=== PATIENT | female | born 1950 | race Caucasian/White ===

== ENCOUNTER → 2016-05-07 | Outpatient (CLI) | payer BC, OTHER | END | disposition home or self-care (01) | LOC: GMAB 14:10 | PROVIDERS: ATTEND Family Medicine | DX: C21.0 Malignant neoplasm of anus, unspecified (principal) ==

== ENCOUNTER 2016-07-01 23:01 | Emergency (ER) | payer OTHER, MEDICARE ==
[2016-07-01] MEDS ORDERED: ASPIRIN (CHEWABLE) 81 MG TAB PO ONE (23:06)
--- NOTE | 2016-07-01 23:09 | ED.PDOC ---
History of Present Illness - General Chief Complaint: Cardiovascular Problem Stated Complaint: chest pain Time Seen by Provider: 07/01/16 23:04 Source: patient Exam Limitations: no limitations - History of Present Illness Initial Comments: Patient presents with chest pain for three hours. It is midsternal, non- radiating, constant, pressure-like, one previous episode two weeks ago that resulted in PTCA placement x two, no associate sx. Denies dyspnea. 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 She called her oncologist michelet after the pain started and it was suggested to come to the ER for cardiac enzymes. Her oncologist instructed her to turn off her 5-FU pump before coming. No other complaints. Timing/Duration: 1-3 hours Severity: moderate Location: substernal Activities at Onset: none Prior Chest Pain/Cardiac Workup: cardiac cath Improving Factors: nothing Worsening Factors: nothing Nitro Today/Relief: no nitro taken today Aspirin Treatment Today: 81 mg x 1 Associated Symptoms: denies symptoms Allergies/Adverse Reactions: Allergies NO KNOWN ALLERGY Allergy (Verified 07/02/16 02:37) Review of Systems - Review of Systems Constitutional: States: no symptoms reported EENTM: States: no symptoms reported Respiratory: States: no symptoms reported Cardiology: States: see HPI Gastrointestinal/Abdominal: States: no symptoms reported Genitourinary: States: no symptoms reported Musculoskeletal: States: no symptoms reported Skin: States: no symptoms reported Neurological: States: no symptoms reported Endocrine: States: no symptoms reported Hematologic/Lymphatic: States: no symptoms reported Family Medical History - Family History Father Living Status: Hx Cardiac Disease: Yes Physical Exam - Physical Exam General Appearance: Alert Respiratory: lungs clear Cardiovascular/Chest: normal peripheral pulses, regular rate, rhythm Gastrointestinal/Abdominal: normal bowel sounds, non tender, soft Extremity: normal inspection, no pedal edema Skin Exam: normal color Lymphatic: no adenopathy Progress - Progress Progress: 07/02/16 03:28 EKG read by me showed NSR with no ST changes nor T wave inversions. No LBBB. Troponins x 2 negative. Patient discharged with orders to follow up with her oncologist in the morning. Departure - Departure Clinical Impression: Chest pain Disposition: Discharge to Home or Self Care Condition: Good Diet: resume usual diet Activity: increase activity as tolerated Additional Instructions: Follow up with your oncologist in the morning.
--- NOTE | 2016-07-01 23:51 | RAD ---
EXAM DESCRIPTION: Chest,1 View CLINICAL HISTORY: 65 years Female chest pain COMPARISON: None. FINDINGS: Left chest port tip overlies the SVC. The cardiomediastinal silhouette appears unremarkable. Atherosclerotic calcifications in the aortic arch. No consolidating infiltrates or pleural effusions. No pneumothorax. IMPRESSION: No acute abnormality is identified. Electronically signed by: Dante Beal MD 07/01/2016 11:50 PM CDT
[2016-07-02 03:40] VITALS: BP 117/58; TEMP 97.8; O2SAT 96
== END 2016-07-02 03:39 | disposition home or self-care (01) ==
LOC: ER 23:01
DX: R07.9 Chest pain, unspecified (principal); C21.0 Malignant neoplasm of anus, unspecified; Z79.899 Other long term (current) drug therapy; Z82.49 Family history of ischemic heart disease and other diseases of the circulatory system

== ENCOUNTER → 2016-08-13 | Outpatient (CLI) | payer OTHER, MEDICARE ==
--- NOTE | 2016-08-14 13:07 | US ---
EXAM DESCRIPTION: Carotid Duplex CLINICAL HISTORY: BRUIT COMPARISON: None Available. TECHNIQUE: Carotid Doppler ultrasound FINDINGS: Calcific atherosclerotic changes are observed in both carotid arteries. No hemodynamically significant stenosis is observed throughout the left carotid system. The right internal and common carotid arteries are unremarkable. There is some acceleration flow in the right external carotid artery. Antegrade flow seen in both vertebral arteries. IMPRESSION: No hemodynamically significant stenosis is detected. Electronically signed by: Miguel Ángel Luz MD 08/14/2016 1:07 PM CDT
== END | disposition home or self-care (01) ==
LOC: US 13:19
PROVIDERS: ATTEND Family Medicine
DX: R09.89 Other specified symptoms and signs involving the circulatory and respiratory systems (principal)

== ENCOUNTER → 2016-12-30 | Outpatient (CLI) | payer OTHER, MEDICARE | END | disposition home or self-care (01) | LOC: GMAB 10:55 | PROVIDERS: ATTEND Family Medicine | DX: E11.9 Type 2 diabetes mellitus without complications (principal) ==

== ENCOUNTER → 2017-04-14 | Outpatient (CLI) | payer OTHER, MEDICARE | LOC: GMAB 17:08 | PROVIDERS: ATTEND Family Medicine | DX: E53.8 Deficiency of other specified B group vitamins (principal); D64.9 Anemia, unspecified ==

== ENCOUNTER → 2018-04-14 | Outpatient (CLI) | payer OTHER, MEDICARE | LOC: GMAE 10:47 | PROVIDERS: ATTEND Family Medicine | DX: Z00.00 Encounter for general adult medical examination without abnormal findings (principal) ==

== ENCOUNTER → 2018-08-09 | Outpatient (CLI) | payer OTHER, MEDICARE ==
--- NOTE | 2018-08-12 09:21 | MAM ---
EXAM DESCRIPTION: 3D Screening BILATERAL : Digital Mammography. CLINICAL HISTORY: 67 years Female ANNUAL SCREENING . No complaints. No personal or family history of breast cancer. Prior biopsy left breast benign. Childbirth. Postmenopausal. No HRT. Lifetime risk of developing breast cancer (Tyrer-Cuzick model)(%): 4.4. COMPARISON: Baseline study at this facility. No prior reports available. TECHNIQUE: Bilateral CC and MLO projection full-field images, digital tomosynthesis mammographic technique. Bilateral digital 2-D full-field MLO images. CAD not available for tomosynthesis or 2-D images. FINDINGS: The breast parenchymal density pattern is: Almost entirely fatty. No skin thickening or nipple retraction. Small solitary microcalcifications and intramammary lymph nodes left breast. No new focal, stellate mass or density, focal asymmetry , and no suspicious microcalcifications bilaterally. IMPRESSION: Benign exam. BIRAD CATEGORY: 2 BENIGN FINDINGS. RECOMMENDATIONS: FOLLOW UP: Routine digital bilateral mammographic screening, one year interval from July 2018. Written communication explaining the IMPRESSION and follow-up, will be mailed to the patient and referring health care provider. The FINDINGS and the FOLLOW-UP plan were reviewed in person with the patient after the examination. According to the [employer], yearly mammograms are recommended starting at age 40 and continuing as long as a woman is in good health. Any breast change noted on a breast self-exam should be reported promptly to the patient's healthcare provider. Breast MRI is recommended for women with an approximately 20-25% or greater lifetime risk of breast cancer, including women with a strong family history of breast or ovarian cancer and women who have been treated for Hodgkin's disease. A negative mammographic report should not delay tissue diagnosis in patients with significant clinical history or physical findings. Extremely dense breast tissue limits the sensitivity of digital mammography. Electronically signed by: Hubert Vega MD 08/12/2018 9:19 AM CDT
== END ==
LOC: MAMMO 11:30
PROVIDERS: ATTEND Family Medicine
DX: Z12.31 Encounter for screening mammogram for malignant neoplasm of breast (principal)

== ENCOUNTER → 2018-11-08 | Outpatient (CLI) | payer OTHER, MEDICARE | LOC: GMAE 13:47 | PROVIDERS: ATTEND Family Medicine | DX: E53.8 Deficiency of other specified B group vitamins (principal); D51.0 Vitamin B12 deficiency anemia due to intrinsic factor deficiency; E11.9 Type 2 diabetes mellitus without complications; M79.10 Myalgia, unspecified site; I10 Essential (primary) hypertension ==

== ENCOUNTER → 2019-06-13 | Outpatient (CLI) | payer OTHER, MEDICARE | LOC: GMAE 11:30 | PROVIDERS: ATTEND Family Medicine | DX: Z00.00 Encounter for general adult medical examination without abnormal findings (principal) ==

== ENCOUNTER 2019-07-10 15:11 | Emergency (ER) | payer OTHER, MEDICARE ==
--- NOTE | 2019-07-10 16:16 | ED.PDOC ---
History of Present Illness - General Chief Complaint: Fever Stated Complaint: fever, chills, body aches Time Seen by Provider: 07/10/19 15:34 Source: patient, RN notes reviewed, Vital Signs reviewed, family - Son Exam Limitations: no limitations - History of Present Illness Initial Comments: Patient is a 68-year-old white female who presents with complaints of body aches and fever. The symptoms started this morning. 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 Patient denies any fever of sore throat, cough, shortness of breath, dysuria. Nothing seems to make the pain better. The fever improved with Tylenol. Movement makes the body aches worse. Timing/Duration: 4-6 hours Severity: moderate Improving Factors: medication Worsening Factors: movement Associated Symptoms: fever/chills, headaches, malaise Allergies/Adverse Reactions: Allergies NO KNOWN ALLERGY Allergy (Verified 07/10/19 16:26) Review of Systems - Review of Systems Constitutional: States: see HPI, chills, fever, malaise, weakness EENTM: States: no symptoms reported. Denies: nose pain, nose congestion, throat pain, mouth pain Respiratory: States: no symptoms reported. Denies: cough, short of breath, wheezing Cardiology: States: no symptoms reported. Denies: chest pain, palpitations, syncope Gastrointestinal/Abdominal: States: no symptoms reported. Denies: abdominal pain, diarrhea, nausea, vomiting Genitourinary: States: no symptoms reported. Denies: dysuria, frequency Musculoskeletal: States: see HPI, joint pain, muscle stiffness. Denies: neck pain Skin: States: no symptoms reported. Denies: change in color, rash Neurological: States: no symptoms reported. Denies: tingling, weakness Endocrine: States: no symptoms reported Hematologic/Lymphatic: States: no symptoms reported All other Systems: No Change from Baseline Past Medical History (General) - Patient Medical History Hx of COPD: Yes Hx Cardiac Disorders: Yes - Stents placed 06/19/16 Hx Congestive Heart Failure: No Hx Diabetes: Yes - type 2 Hx Cancer: Yes - rectal - Vaccination History Hx Tetanus, Diphtheria Vaccination: No Hx Influenza Vaccination: No Hx Pneumococcal Vaccination: No - Social History Hx Tobacco Use: Yes Hx Alcohol Use: No Family Medical History - Family History Father Living Status: Hx Cardiac Disease: Yes Physical Exam - Physical Exam General Appearance: Alert, Comfortable, Well Developed, Well Groomed, Well Hydrated, Well Nourished Eye Exam: bilateral normal Ears, Nose, Throat: hearing grossly normal, normal ENT inspection, normal pharynx Neck: non-tender, full range of motion, supple, normal inspection Respiratory: chest non-tender, lungs clear, normal breath sounds, no respiratory distress Cardiovascular/Chest: normal peripheral pulses, regular rate, rhythm, no edema, no gallop, no JVD, no murmur Peripheral Pulses: radial,right: 2+, radial,left: 2+ Gastrointestinal/Abdominal: normal bowel sounds, non tender, soft, no organomegaly Back Exam: normal inspection, no CVA tenderness, no vertebral tenderness Extremity: normal range of motion, non-tender, normal inspection Neurologic: truer pinion and wheel II-XII nml as tested, no motor/sensory deficits, alert, normal mood/affect, oriented x 3 Skin Exam: normal color, warm/dry Lymphatic: no adenopathy Progress - Progress Progress: Differential diagnosis: UTI, pneumonia, strep, influenza, COVID among others. 07/10/19 17:29 Patient's work-up is negative. COVID testing is pending. Plan on discharge home with a diagnosis of viral illness. Patient knows she is to self isolate until her COVID exam comes back and she is afebrile x72 hours. I discussed this plan of care with the patient she voices understanding and agreement. Dante Gonzalez M.D. #[id number] - Results/Orders Results/Orders: 07/10/19 15:50 STREP A SCREEN CULTURE Stat 07/10/19 16:22 Urine Culture Stat 07/10/19 17:12 SARS-COV2 PCR HIGH RISK Stat Laboratory Results - last 24 hr 07/10/19 07/10/19 15:50 16:22 Urine Color Yellow Urine Appearance Clear Urine pH 6.0 Ur Specific [place] 1.015 Urine Protein Negative Urine Glucose (UA) Negative Urine Ketones Negative Urine Blood Trace-intact H Urine Nitrite Negative Urine Bilirubin Negative Urine Urobilinogen 0.2 Ur Leukocyte Esterase Trace H Urine RBC 1-3 Urine WBC 10-20 H Ur Epithelial Cells 1-3 Urine Bacteria Rare Group A Strep Rapid Negative EXAM: XR Chest, 1 View CLINICAL HISTORY: fever TECHNIQUE: Frontal view of the chest. COMPARISON: 07/01/2016. FINDINGS: Lungs: Stable mild central airway scarring. No consolidation. Pleural space: Unremarkable. No pneumothorax. Heart: Unremarkable. No cardiomegaly. Mediastinum: Unremarkable. Bones/joints: Unremarkable. Tubes, lines and devices: Left subclavian central venous port unchanged terminating in the distal SVC. IMPRESSION: Chronic changes as above. No acute disease. Electronically signed by: Jessica Botello MD 07/10/2019 4:33 PM Strep screen is negative. Influenza screen is negative. Departure - Departure Clinical Impression: Nonspecific syndrome suggestive of viral illness Fever Qualifiers: Fever type: unspecified Qualified Code(s): R50.9 - Fever, unspecified Time of Disposition: 17:31 Disposition: Discharge to Home or Self Care Condition: Good Departure Forms: ED Discharge - Pt. Copy, Patient Portal Self Enrollment Instructions: DI for Fever (Symptom) -- Adult Diet: resume usual diet Activity: increase activity as tolerated Referrals: AARON WAGGONER MD [Primary Care Provider] - 1-5 Days
--- NOTE | 2019-07-10 16:35 | RAD ---
EXAM: XR Chest, 1 View CLINICAL HISTORY: fever TECHNIQUE: Frontal view of the chest. COMPARISON: 07/01/2016. FINDINGS: Lungs: Stable mild central airway scarring. No consolidation. Pleural space: Unremarkable. No pneumothorax. Heart: Unremarkable. No cardiomegaly. Mediastinum: Unremarkable. Bones/joints: Unremarkable. Tubes, lines and devices: Left subclavian central venous port unchanged terminating in the distal SVC. IMPRESSION: Chronic changes as above. No acute disease. Electronically signed by: Jessica Botello MD 07/10/2019 4:33 PM CDT
[2019-07-10 18:25] VITALS: TEMP 98.6; O2SAT 98
[2019-07-10 18:26] VITALS: BP 149/82
== END 2019-07-10 17:38 | disposition home or self-care (01) ==
LOC: ER 15:11
DX: B34.9 Viral infection, unspecified (principal); R50.9 Fever, unspecified; E11.9 Type 2 diabetes mellitus without complications; F17.200 Nicotine dependence, unspecified, uncomplicated
CPT/HCPCS: 71045; 81001; 87070; 87086; 87502; 87880; U0002

== ENCOUNTER → 2019-09-13 | Outpatient (CLI) | payer OTHER, MEDICARE | LOC: GMAE 10:31 | PROVIDERS: ATTEND Family Medicine | DX: D64.9 Anemia, unspecified (principal); E11.9 Type 2 diabetes mellitus without complications ==

== ENCOUNTER → 2019-12-20 | Outpatient (CLI) | payer OTHER, MEDICARE | LOC: GMAE 11:04 | PROVIDERS: ATTEND Family Medicine | DX: M79.10 Myalgia, unspecified site (principal); E11.9 Type 2 diabetes mellitus without complications ==